=== PATIENT | male | born 1950 | race Caucasian/White ===

== ENCOUNTER 2020-02-12 12:54 | Emergency (ER) | payer SELFPAY ==
[2020-02-12 12:55] VITALS: BP 163/121; PULSE 72; RESP 16; TEMP 36.2; O2SAT 97; BMI 31.0
--- NOTE | 2020-02-12 13:31 | EKG12_ITS ---
Test Reason : Blood Pressure : / mmHG Vent. Rate : 069 BPM Atrial Rate : 069 BPM P-R Int : 188 ms QRS Dur : 090 ms QT Int : 410 ms P-R-T Axes : 067 041 027 degrees QTc Int : 439 ms Sinus rhythm with Premature atrial complexes Otherwise normal ECG Confirmed by ANAHI SAENZ, GILBERTO ([id number]), manager background QUENTIN ROSE ([id number]) on 02/19/2020 11:43:19 AM Referred By: LAILA Confirmed By:GILBERTO CHRISTIAN MD
--- NOTE | 2020-02-12 13:31 | RAD_ITS ---
STUDY: X-RAY CHEST REASON FOR EXAM: Male, 69 years old. SOB on exertion since , anterior left chest pain TECHNIQUE: Single AP portable view of the chest. COMPARISON: None. FINDINGS: EKG electrodes are seen. Hyperinflation. Scattered calcified granulomas. There is no demonstrated pleural abnormality. Normal size heart. Normal mediastinum and jefferson. Normal visualized pulmonary arteries. There is atherosclerotic calcification of the aortic arch with tortuosity. There are diffuse degenerative changes of the visualized thoracic spine. Normal visualized ribs, clavicles, and shoulders. There is no demonstrated abnormality of the visualized soft tissue structures of the upper abdomen. RAD/Chest 1 View (Portable) IMPRESSION: Hyperinflation. No acute abnormality is seen. Electronically Signed: Gopi Pearson, at 15:21 EDT , Service support ,
[2020-02-12 13:36] VITALS: BP 186/96; PULSE 66; RESP 19; O2SAT 94
[2020-02-12 13:37] VITALS: O2SAT 93
--- NOTE | 2020-02-12 13:37 | ED.RN ---
NO OLD EKGS
[2020-02-12 13:42] LABS: Absolute Neutrophil Count 4.8 X10^3/uL (2.0-7.7); Basophil# 0.08 X10^3/uL; Eosinophil# 0.67 X10^3/uL; Eosinophils% 8.3 % (0-5); Hematocrit 48.1 % (40-54); Lymphocyte % 22.2 % (19-41); Mean Corp Hgb Conc 33.3 g/dL (32-36); Mean Corpuscular Hgb 30.8 pg (27.0-32.0); Mean Corpuscular Volume 92.5 fL (80-94); Mean Platelet Vol. 10.1 fl (6.2-12.0); Monocyte# 0.76 X10^3/uL; Monocyte% 9.4 % (0-10); NRBC Flagged by Analyzer 0 % (0-5); Neutrophil # 4.77 X10^3/uL (2.7-7.7); Neutrophil % 58.9 % (47-70); Platelet Count 297 K/mm3 (150-450); RBC Distribution Width CV 12.2 % (11.6-14.6); White Blood Count 8.1 K/mm3 (4.4-11.0)
[2020-02-12 13:51] VITALS: PULSE 88; RESP 20
[2020-02-12] MEDS: Ipratropium/Albuterol Sulfate 3 ML AMPUL.NEB INHALATION (13:51)
[2020-02-12] MEDS: Albuterol 2.5 MG/3 ML VIAL.NEB. INHALATION ×3 (13:51)
[2020-02-12 14:03] LABS: BNP,B-Type NATRIURETIC PEPTIDE 5.9 pg/mL (0-100)
[2020-02-12 14:04] LABS: Anion Gap 7 (5-15); BUN 14 mg/dL (7-18); BUN/Creat Ratio 15.5 RATIO (10-20); Calcium,Total 9.3 mg/dL (8.5-10.1); Chloride 102 mmol/L (98-107); EST Glomerular Filtration Rate 89 mL/min (>60); Est Glom Filt Rate - Afr Amer 108 mL/min (>60); Estimated Creatinine Clearance 78.56 ml/min; Glucose 107 mg/dL (74-106); Sodium Level 138 mmol/L (136-145)
[2020-02-12 15:17] VITALS: BP 146/95; PULSE 68; RESP 23; O2SAT 91
--- NOTE | 2020-02-12 15:38 | ED.DCSUM_ITS ---
History of Present Illness Chief Complaint: Shortness of Breath Informant: Patient Narrative: Patient presenting for evaluation secondary to shortness of breath. Patient reports that he potentially has a history of some mild asthma or COPD he is on an inhaler. Patient tells me that he has been dealing with increasing shortness of breath since , but since today he reports that he is having shortness of breath even with light exertion. Patient states that it is associated with chest discomfort, and a cough that is productive of white sputum. Patient denies any fevers. He denies any nausea vomiting or diarrhea. No sick contacts. Review of systems otherwise negative. Past Medical History - Allergies and Home Meds Allergies/Adverse Reactions: Allergies No Known Allergies Allergy (Verified 02/12/20 12:55) Primary Care Physician: Care Physician,No Primary [Primary Care Provider] - Prior records reviewed: Yes Past Medical History: - - Asthma Smoking Status: Former smoker Alcohol: None Drugs: None Review of Systems All systems negative except as indicated General: Denies: Chills, Fever, Sweats Eyes: Denies: Visual changes - bilaterally, Diplopia ENT: Denies: Rhinorrhea, Sore throat Cardiovascular: Denies: Chest pain, Palpitations Respiratory: Reports: Dyspnea, Cough Gastrointestinal: Denies: Abdominal pain, Nausea, Vomiting, Diarrhea, Melena, Hematochezia Genitourinary: Denies: Dysuria, Hematuria, Frequency Musculoskeletal: Denies: Back pain, Extremity Pain Skin: Denies: Rash, Wounds Neurological: Denies: Headache, Weakness, Numbness Physical Exam Vital Signs/Narrative: Vital Signs Temp Pulse Resp BP Pulse Ox 02/12/20 15:17 68 23 H 146/95 H 91 02/12/20 13:51 88 20 H 02/12/20 13:36 66 19 H 186/96 H 94 02/12/20 12:55 97.2 F L 72 16 163/121 H 97 Inital Vital Signs reviewed: Yes General: Well nourished, Well developed, No Acute Distress Head: Normocephalic, Atraumatic Eyes: Perrl, EOMI ENT: Moist mucous membranes, No rhinorrhea Neck: Supple, Nontender Cardiovascular: Regular rate, Regular rhythm, No murmurs Respiratory: No distress, Chest nontender, Wheezing Abdomen: Soft, Nontender, Nondistended, Normal bowel sounds Back: Nontender, Normal Inspection Extremities: Nontender, No edema Skin: Normal color, No rash Neurological: Alert, Oriented x3, Cranial nerves II-XII grossly intact, Normal Strength, Normal Sensation Psychological: Normal affect, Normal Mood Diagnostic/Tx/Re-eval Chest X-Ray - ED: Read by ED Physician, Read by Radiologist, No Acute Disease Clinical Impression(s) from Imaging Studies Chest X-Ray 02/12/20 13:31 IMPRESSION: Hyperinflation. No acute abnormality is seen. Electronically Signed: Gopi Pearson, at 15:21 EDT , Service support , Laboratory Data 02/12/20 02/12/20 02/12/20 13:24 13:24 13:24 WBC 8.1 RBC 5.20 Hgb 16.0 Hct 48.1 MCV 92.5 MCH 30.8 MCHC 33.3 RDW Std Deviation 42.0 RDW Coeff of Diallo 12.2 Plt Count 297 MPV 10.1 Immature Gran % (Auto) 0.200 Neut % (Auto) 58.9 Lymph % (Auto) 22.2 [place] % (Auto) 9.4 Eos % (Auto) 8.3 H Baso % (Auto) 1.0 Absolute Neuts (auto) 4.8 Absolute Lymphs (auto) 1.80 Nucleated RBC % 0 Sodium 138 Potassium 4.0 Chloride 102 Carbon Dioxide 29.0 Anion Gap 7 BUN 14 Creatinine 0.90 Estim Creat Clear Calc 78.56 Est GFR (MDRD) Af Amer 108 Est GFR (MDRD) Non-Af 89 BUN/Creatinine Ratio 15.5 Glucose 107 H Calcium 9.3 Troponin I < 0.015 B-Natriuretic Peptide 5.9 - Medical Decision Making Patient presented for evaluation secondary shortness of breath. On physical exam the patient was noted to be very wheezy, he was given albuterol and DuoNeb treatments in the emergency department. Chest x-ray per radiology my personal review shows hyperinflation no evidence of acute pathology. CBC chemistry troponin EKG found to be unremarkable. BNP was obtained due to the patient's exertional component this was also found to be unremarkable. Patient had improvement on repeat evaluation, he had an ambulatory pulse ox without desaturation. I believe the patient's presentation likely is more consistent with a COPD exacerbation. He does have a change in his sputum will be treated with a course of prednisone and azithromycin. Patient will be given a PCP referral from the referral list. ED Disposition - Plan for ED Patient: Disposition: Home or Assisted Living Diagnosis: COPD exacerbation Instructions: ED COPD Flare Prescriptions: predniSONE tablet 60 mg PO DAILY #15 tab Prescription Printed Albuterol Inhaler [Ventolin Hfa] 1 - 2 puff INHALATION Q4H PRN PRN #1 inhaler PRN Reason: Wheezing Prescription Printed Azithromycin [Zithromax Z-Edward] 250 mg PO UD #1 box Prescription Printed Referrals: Janak Mendez MD [STAFF PHYSICIAN] -
[2020-02-12 15:57] VITALS: BP 124/77; PULSE 62; RESP 15; O2SAT 95
== END 2020-02-12 15:57 | disposition home or self-care (01) ==
LOC: ED 15:44
PROVIDERS: Emergency Provider Emergency Medicine
DX: J44.1 Chronic obstructive pulmonary disease with (acute) exacerbation (principal); Z87.891 Personal history of nicotine dependence
CPT/HCPCS: 71045; 80048; 83880; 84484; 85025; 87635; 93005; 94640; 99285; A4216; U0003

== ENCOUNTER → 2020-09-27 13:45 | Outpatient (CLI) | payer BC, SELFPAY ==
[2020-09-17 13:58] VITALS: BMI 31.0
--- NOTE | 2020-09-27 13:50 | CT_ITS ---
STUDY: CT ABDOMEN AND PELVIS WITH CONTRAST REASON FOR EXAM: Male, 69 years old. Inguinal hernia repair. Worsening pain and swelling. RADIATION DOSAGE (If Supplied By Facility): CTDIvol = ( 17.49 ) mGy, DLP = ( 1395.82 ) mGycm TECHNIQUE: Transaxial images were obtained from the dome of the diaphragm to the symphysis pubis with oral contrast. Oral and amp; IV Readi-CAT and amp; 100mL Isovue-300 was administered. Sagittal and coronal images were reconstructed. Individualized dose optimization techniques were used for this CT. COMPARISON: None. FINDINGS: The visualized lung bases are unremarkable. The visualized portions of the heart are within normal limits. There is decreased attenuation of the liver consistent with steatosis. There are small gallstones in the neck of the gallbladder lumen. Normal spleen. Normal pancreas. Normal bilateral adrenal glands. Normal right kidney. Normal left kidney. Normal visualized stomach. Normal small intestine. Normal colon. The appendix is visualized and appears normal. There is diffuse atherosclerotic calcification of the abdominal aorta, without a demonstrated aneurysm. Normal inferior vena cava. Normal retroperitoneum. Normal urinary bladder. There is a small umbilical hernia containing fat. Evidence of prior right inguinal hernia repair. Moderate sized left inguinal hernia containing nondilated portion of the sigmoid colon. The neck of the hernia measures 2.2 cm. Moderate sized right inguinal hernia containing fat. Hydrocele in the right scrotum. There are degenerative changes of the visualized lumbar spine. CT/Abdomen/Pelvis WITH Contrast IMPRESSION: Bilateral inguinal hernias worse on the left side as described. There is evidence of prior right inguinal hernia repair. Small gallstones are seen in the neck of the gallbladder lumen. Fatty infiltration of the liver. Electronically Signed: Gopi Pearson MD at 14:40 EDT , Service support ,
[2020-09-27 14:11] LABS: EGFR FINGERSTICK > 60.0000 mL/min (>60)
== END ==
PROVIDERS: PCP Family Medicine; Referring Provider Surgery; Visit Provider Surgery
DX: Z01.812 Encounter for preprocedural laboratory examination (principal); K40.20 Bilateral inguinal hernia, without obstruction or gangrene, not specified as recurrent; K42.9 Umbilical hernia without obstruction or gangrene
CPT/HCPCS: 74177; Q9967; A4216

== ENCOUNTER 2020-10-07 11:19 | Day surgery (SDC) | payer BC, SELFPAY ==
[2020-09-30 08:42] VITALS: BMI 31.0
[2020-10-04 13:39] LABS: Hemoglobin 14.5 g/dL (13.0-16.5); Mean Corpuscular Hgb 30.2 pg (27.0-32.0); Mean Corpuscular Volume 91.7 fL (80-94); Mean Platelet Vol. 10.5 fl (6.2-12.0); Platelet Count 266 K/mm3 (150-450); RBC Distribution Width CV 12.8 % (11.6-14.6); RBC Distribution Width SD 42.5 fl (35.1-43.9)
--- NOTE | 2020-10-04 13:40 | EKG12_ITS ---
Test Reason : PREOP Blood Pressure : / mmHG Vent. Rate : 073 BPM Atrial Rate : 073 BPM P-R Int : 160 ms QRS Dur : 088 ms QT Int : 376 ms P-R-T Axes : 019 046 034 degrees QTc Int : 414 ms Normal sinus rhythm Normal ECG Confirmed by PO SAENZ, OMI ([id number]), sports editor QUENTIN ROSE ([id number]) on 10/07/2020 1:43:15 PM Referred By: Maksim Bella Confirmed By:OMI FONTENOT MD
[2020-10-07] VITALS (7 sets, daily range): BP systolic 134–154; BP diastolic 83–111; PULSE 62–79; RESP 14–18; TEMP 36.2–37.1; O2SAT 92–98; BMI 31.6
--- NOTE | 2020-10-07 | HERN_PTH ---
PATIENT: LUZ MARINA DENNIS [place] [facility] [id number] AGE/SX: 69/M ROOM: RE10/07/[address]: Dr. Maksim Bella MD : 1950 BED: DIS: 10/07/2020 SPEC #: [id number] RECD: 10/07/20 15:14 STATUS: RAJENDRA TIFFANY #: [id number] ANTONIO: 10/07/20 00:[address]: Maksim Bella DEPT: SURGICAL PATHOLOGY RECD BY: Winston Lopez ENTERED: 10/08/20 08:08 SP TYPE: Hernia OTHR DR: Dr. Janak Mendez MD Tissues: HERNIA Procedures: Surgery Specimen Level II HEADER OPERATION: Inguinal hernia with mesh, open umbilical hernia repair PRE-OP DIAGNOSIS: Umbilical hernia; bilateral inguinal hernia TISSUE SUBMITTED: Left inguinal hernia sac MICROSCOPIC DIAGNOSIS Left inguinal hernia sac: Mesothelial-lined fibroadipose and fibroconnective tissue, consistent with hernia sac. SJ:jennie 10/09/2020 MICROSCOPIC DESCRIPTION Slides are reviewed. GROSS DESCRIPTION Received in fixative is one container labeled with the patient's name and designated inguinal hernia sac. The specimen consists of an irregular piece of lomeli soft tissue measuring 9 x 1 x 0.3 cm. No mass lesion is identified. Packaging Sales sections are submitted in one cassette. / TANIA:jennie 10/08/20 TC:5 CPT: 97518
[2020-10-07] MEDS: Lactated Ringers 1,000 ML 100 ML IV ×2 (12:01→14:56)
--- NOTE | 2020-10-07 12:52 | HP.PCM_ITS ---
History and Physical Date of Admission: 10/07/20 Intake Vital Signs 09/30/20 08:42 BMI 31.0 Intake Visit Reasons: f/u CT and hernias Chief Complaint: bilateral inguinal and umbilical hernias/ change in bowel habits Allergies No Known Allergies Allergy (Verified 09/30/20 08:41) Medications albuterol sulfate 1 - 2 puff INHALATION Q4H PRN PRN #1 inhaler 02/12/20 [Rx Confirmed 09/30/20] fluticasone 250 mcg-salmeterol 50 mcg/dose blistr powdr for inhalation INHALATION 09/17/20 [History Confirmed 09/30/20] rosuvastatin 5 mg tablet 5 mg PO DAILY tab 09/17/20 [History Confirmed 09/30/20] PFSH Medical History Back pain Bilateral inguinal hernia (BIH) COPD (chronic obstructive pulmonary disease) Shortness of breath on exertion Umbilical hernia Surgical History History of colonoscopy (~2017) History of hernia repair (~2012) Family History Daughter Seasonal allergies Social History Smoking Status: Former smoker HPI HPI HPI: LUZ MARINA DENNIS, is a 69 M who presents to the office today for follow-up after CT scan. The patient has been having bulging in both groins and the left side is unable to be reduced. The patient is also noted that he has to push in his right inguinal hernia to urinate. I sent the patient for CT scan which revealed umbilical hernia as well as bilateral inguinal hernias containing bladder on the right and colon on the left. ROS General General: Yes fatigue; No weight change, appetite, colon cancer, breast cancer or weakness HEENT HEENT: No difficulty swallowing, eye injury, eye surgery, swollen glands or hoarseness Endo Endocrine: No thyroid disease, diabetes mellitus, thyroid cancer, Hair loss, heat intolerance or cold intolerance Musc Musculoskeletal: Yes back problems; No arthritis, rheumatoid arthritis, gout or joint pain Cardio Cardiovascular: No murmur, pacemaker, heart disease, atrial fibrillation, high blood pressure, heart attack, heart stent, palpitations, shortness of breat with exertion or chest pain Psych Psychiatric: No depression, anxiety or hearing voices Resp Respiratory: Yes shortness of breath, No sleep apnea, No cough, Yes COPD, No asthma, No emphysema and No wheezing Gastro Gastrointestinal: Yes abdominal pain, No nausea or vomiting, Yes diarrhea, No constipation, No blood in stool, No acid reflux, No hemorrhoids, No ulcers, No gallbladder problem and No black,tarry stools Ej Hematologic: No blood thinners, No blood disorders, No bleeding, No anemia and No blood clots Neuro Neurologic: No weakness Exam Const General: cooperative Orientation: alert and oriented x3 HENMT Head: normal to inspection Neck Neck: normal visual inspection and full ROM Chest Chest palpation & inspection: normal inspection of the chest Resp Effort & Inspection: normal respiratory effort Auscultation: clear to auscultation bilaterally Cardio Rate: regular rate Rhythm: regular rhythm GI Inspection: non-distended Palpation: soft, hernia indirect inguinal bilaterally and umbilical and nontender Skin General: no rashes or lesions noted Neuro General: patient alert and patient oriented x3 Extrem General: full ROM Psych Appearance: grossly normal Mental Status: mental status grossly normal Assessment and Plan Assessment and Plan (1) Umbilical hernia: Status: Acute Qualifiers: Obstruction and gangrene presence: without obstruction or gangrene Qualified Code(s): K42.9 - Umbilical hernia without obstruction or gangrene (2) Bilateral inguinal hernia (BIH): Status: Acute Qualifiers: Obstruction and gangrene presence: without obstruction or gangrene Recurrence: recurrent Qualified Code(s): K40.21 - Bilateral inguinal hernia, without obstruction or gangrene, recurrent Plan - Dr. Maksim Bella MD: The patient has bilateral inguinal hernia. Patient also has umbilical hernia. Given the fact that the left side is incarcerated containing colon I recommend that this be repaired first. The patient has a history of right inguinal hernia repair so the right side is recurrent. The CT scan shows bilateral inguinal hernia containing colon left and bladder on the right. There is a significant amount of bladder in the inguinal region and scrotum on the CT scan. The patient will require bilateral inguinal hernia repair but I would recommend this in an open fashion due to the history of laparoscopic repair on the right. I would not recommend a bilateral open inguinal hernia approach due to good recovery time. I recommend that the patient have an umbilical hernia repair as well as a open left inguinal hernia repair first. Once he is recovered from this I will plan for an open right inguinal recurrent hernia repair. I discussed hernia repair as well as umbilical repair in detail the patient. I discussed the risks including not limited to bleeding, infection, injury to underlying organs such as the colon. Chronic groin pain or injury to spermatic cord. The patient understands the risks and is when to proceed with open left inguinal hernia repair and umbilical hernia repair with mesh. Maksim Bella MD Pager: [facility] [address] [place] [address], [address] [place] [address] Office: I have re-examined the patient. There are no clinical changes since date of exam.
[2020-10-07] MEDS: Cefazolin 2 GM in 0.9% Normal Saline 100 ML IV (13:09)
[2020-10-07] MEDS: Bupiv/Epi 0.25% 30 ML Vial (14:27)
--- NOTE | 2020-10-07 14:47 | PCM.OPRPT ---
Problems Associated Problem List Diagnoses (1) Left inguinal hernia: (2) Umbilical hernia: Report of Operation Date of Procedure: 10/07/20 Pre-Operative Diagnosis: Left inguinal hernia Umbilical hernia Post-Operative Diagnosis: Same Surgery/Procedure Performed:: Left inguinal hernia repair with mesh Umbilical hernia repair with mesh Specimen's removed: Left inguinal hernia sac Description of Procedure: The patient was brought back to the operating room and general anesthesia was induced. The abdomen was prepped and draped in usual sterile fashion. The left inguinal region was reduced of its hernia contents. An incision was marked in the left lower quadrant and injected with local anesthetic. An incision was made a scalpel and it was deepened to the external aponeurosis. The external aponeurosis was incised with a scalpel and then hemostats were used to raise both ends and scissors were used to open the external aponeurosis until the external ring was opened. This was also extended superior laterally. The edges were raised and dissection was carried out and a self-retaining retractor was used. Next the umbilical cord was circumscribed with a Mariza drain and elevated. The hernia sac was identified and dissected free of its lateral adhesions. The hernia sac was then elevated and opened using scissors. The contents were reduced to fully and an 0 silk suture was used to ligate the hernia sac. The remaining hernia sac was removed and the stump of the hernia sac was reduced into the abdomen. Next keyhole mesh was tacked to the pubic tubercle using 0 PDS suture. The mesh was then tacked to the shelving portion of the inguinal ligament using interrupted 0 PDS sutures. The mesh was then sutured to the conjoined tendon using interrupted 0 PDS sutures. The tails were placed around the inguinal cord and sutured together using PDS suture. They were tucked under the external aponeurosis. The inguinal canal was irrigated and suctioned dry. The external aponeurosis was then reapproximated using a running 3-0 Vicryl suture. Nina's fascia was then closed using interrupted 3-0 Vicryl suture. The skin was closed using a running 4-0 Monocryl. Glue was applied. Next the umbilical hernia was addressed. A curvilinear incision was marked superior to the umbilicus and then incised using a scalpel. The umbilical stalk was taken off of the hernia sac and retracted. The hernia was dissected free circumferentially until Stephanie's were used to raise the edges. The preperitoneal contents were dissected free leaving a pocket in the preperitoneal space and reducing the hernia sac. Next a small Ventralex ST mesh was placed into the preperitoneal space and sutured to the anterior fascia using 0 PDS suture. The mesh was then reapproximated using interrupted 0 PDS sutures. The subcutaneous tissue was irrigated and suctioned dry. The umbilical stalk was sutured to the fascia using 3-0 Vicryl suture. The skin was closed with a running 4-0 Monocryl suture. Steri-Strips were applied as well as bandages. Patient was then taken to PACU in stable condition and tolerated the procedure well. Grafts/Implants Used: Bard keyhole mesh in the left inguinal region, small Ventralex ST umbilical Admit VTE Documentation VTE Mechan Device Prophylaxis: SCD's
--- NOTE | 2020-10-07 14:53 | EX.PCM.DISCH ---
Discharge Instructions Procedure Hernia Diet Discharge Diet: Light diet - advance as tolerated Activity Discharge Activity: May Not Drive (for 2-3 days or while taking narcotic pain meds.) and May Shower (with the bandage in place 1-2 days after surgery.) Lifting Restrictions: 20 pounds for 6 weeks. Additional Activity Instructions:: Climbing stairs is fine, walking is encouraged. Sitting in bed may be uncomfortable. Sitting up using your lateral muscles (sitting up sideways) is usually more comfortable. Do not drive, work heavy equipment of sign legal documents for 24 hours. If your hernia repair was an ingunial repair, you may have scrotal swelling, an ice pack and/or athletic support can provide more comfort. Pain medications may cause nausea, you should typically eat light foods as you take your pain medications. Pain medications may also cause constipation. If you have difficulty with this, discuss with your doctor. Dressing / Incision Call your doctor if your incision/area has: Continuous Slow Oozing, Sudden Increased Bleeding, Increased Pain/ Swelling, Increased Redness and Foul Smelling Discharge Call your doctor if you observe: Fever of 101 or Higher Suture Line Care: Avoid Pulling/Pushing and Avoid Pinching/Bending Remove Dressing in: 3 days Cleanse incision/area with: Soap & Water Follow Up Care Please Follow Up With: Maksim Bella MD When: Please call to schedule 2 week follow up appointment. [phone] Test Results: Test results from this visit will be discussed in further detail at your follow-up appointment, if applicable. Discharge Plan Admission Attending Provider: Maksim Bella Primary Care Provider: Janak Mednez Discharge Orders/Prescriptions Prescriptions: New oxycodone-acetaminophen [Percocet] 5-325 mg tablet 1 - 2 tab PO Q6H PRN (Reason: pain) 5 Days Qty: 30 RF: 0 No Action rosuvastatin 5 mg tablet 5 mg PO DAILY RF: 0 fluticasone propion-salmeterol 250-50 mcg/dose blister with device 1 inh inhalation DAILY RF: 0 albuterol sulfate 1 INHALER inhaler 1 - 2 puff INHALATION Q4H PRN PRN (Reason: Wheezing) Qty: 1 RF: 0 fexofenadine [Katie Allergy] 180 mg Tablet 180 mg PO DAILY RF: 0 bismuth subsalicylate [Pepto-Bismol] 262 mg Tablet,Chewable 1 tab PO DAILY RF: 0 Referrals / Follow Up: Janak Mendez MD [Primary Care Provider] - Disposition Disposition (needs filled in before D/C Order can be placed): Home, self care
[2020-10-07] MEDS: oxyCODONE 5 MG Tablet PO (16:13)
[2020-10-07] MEDS: Acetaminophen 325 MG Tablet PO (16:13)
== END 2020-10-07 16:50 | disposition home or self-care (01) ==
LOC: SDC 11:20 → AC 11:20
PROVIDERS: Anesthesiology; PCP Family Medicine; Referring Provider Surgery; Visit Provider Surgery
PROC: (CPT 49505; principal; 2020-10-07 13:00)
DX: K42.9 Umbilical hernia without obstruction or gangrene (principal); R19.4 Change in bowel habit; K40.21 Bilateral inguinal hernia, without obstruction or gangrene, recurrent; J44.9 Chronic obstructive pulmonary disease, unspecified; Z87.891 Personal history of nicotine dependence
CPT/HCPCS: 49505; 49585; 36415; 85027; 87426; 88302; 93005; C9803; J7120; C1781; J2405

== ENCOUNTER 2021-03-23 01:32 | Observation (INO) | payer BC, MEDICARE, SELFPAY ==
[2021-03-23] VITALS (14 sets, daily range): BP systolic 119–181; BP diastolic 66–107; PULSE 65–89; RESP 14–18; TEMP 36.5–37.2; O2SAT 93–98; BMI 31.2; BMI 30.4
--- NOTE | 2021-03-23 02:08 | CT_ITS ---
ACR Level 3 findings have been noted. An addendum which confirms receipt of the report will follow. Study: CT angiogram of the chest, abdomen, and pelvis with IV contrast. COMPARISON: None. HISTORY: Abdominal pain, rule out aortic dissection. TECHNIQUE: Serial axial images of the chest , abdomen, and pelvis were obtained following intravenous injection of 100 mL ISOVUE-370. Coronal and sagittal MIP images were obtained and reviewed. Individualized dose optimization techniques were used for this CT. FINDINGS: CHEST: No thoracic aortic aneurysm or dissection. Atherosclerosis of the thoracic aorta and coronary arteries noted. No adenopathy. No pericardial or pleural effusion. No pneumothorax. No poorly consolidation, mass, or suspicious nodule. Multilevel thoracic spondylosis. No acute osseous abnormality in the thoracic cage. Abdomen and pelvis: No abdominal aortic aneurysm or dissection. Atherosclerosis of the abdominal aorta noted.. Diffuse hepatic steatosis with focal fat sparing adjacent to the gallbladder fossa. Stones in the gallbladder. Gallbladder wall thickening with minimal pericholecystic fat stranding. Findings are suggestive of acute cholecystitis. Unremarkable spleen, pancreas, adrenals, and left kidney. A 0.4 cm hypodensity arising from the lateral cortex of the mid part of the right kidney, probably a cyst but too small to fully characterize.. No CT evidence of acute appendicitis. Bowel loops nonobstructed. No free air or free fluid. No adenopathy. Sections through the pelvis demonstrate a mildly enlarged prostate. Right inguinal hernia is noted containing fat and anterolateral wall of the urinary bladder. Small fat-containing left inguinal hernia is seen. There is multilevel lumbar spondylosis. CT/CTA Chst, Abd, Pel W and/or WO IMPRESSION: No thoracoabdominal aortic aneurysm or dissection. No acute finding the chest. Cholelithiasis with findings highly suggestive of acute cholecystitis. HIDA scan is recommended to confirm. Electronically Signed: Yuan Ren MD at 3:49 EST Tel , Service support ,
[2021-03-23] MEDS: Ondansetron 4 MG/2 ML Vial IV ×2 (02:17→07:03)
[2021-03-23] MEDS: 0.9% Normal Saline 1,000 ML 999 ML IV (02:17)
[2021-03-23] MEDS: Morphine 4 MG/ML Syringe IV (02:17)
[2021-03-23 02:31] LABS: Bacteria 0 SEEN /hpf (None Seen); Color, Urine Yellow (Yellow); Glucose, Dipstick 50 mg/dl (Normal); Ketone-Dipstick 5 mg/dl (Negative); Leukocyte Esterase-Dipstick Negative /ul (Negative); Mucous, Urine 0 SEEN /hpf (<or=2+); Nitrite-Dipstick Negative (Negative); Occult Blood-Urine 10 /ul (Negative); Protein-Dipstick 30 mg/dl (Negative); Red Blood Cells-Urine 0 SEEN /hpf (0-5); Specific Gravity, Urine 1.025 (1.002-1.030); Squamous Epithelial Cells - UA 0 SEEN /hpf (0-5); Urine Bilirubin Dipstick Negative (Negative); Urine Clarity Clear (Clear); Urine Urobilinogen Normal (Normal); White Blood Cells 0 SEEN /hpf (0-5)
[2021-03-23 02:32] LABS: Absolute Neutrophil Count 10.3 X10^3/uL (2.0-7.7); Basophil# 0.08 X10^3/uL; Basophil% 0.7 % (0-1); Eosinophil# 0.16 X10^3/uL; Eosinophils% 1.3 % (0-5); Hematocrit 46.1 % (40-54); Lymphocyte % 8.2 % (19-41); Mean Corp Hgb Conc 34.7 g/dL (32-36); Mean Corpuscular Hgb 31.5 pg (27.0-32.0); Mean Corpuscular Volume 90.7 fL (80-94); Mean Platelet Vol. 10.3 fl (6.2-12.0); Monocyte# 0.59 X10^3/uL; Monocyte% 4.8 % (0-10); NRBC Flagged by Analyzer 0 % (0-5); Neutrophil # 10.31 X10^3/uL (2.7-7.7); Neutrophil % 84.6 % (47-70); Platelet Count 283 K/mm3 (150-450); RBC Distribution Width SD 39.8 fl (35.1-43.9); Red Blood Count 5.08 M/mm3 (4.6-6.2); White Blood Count 12.2 K/mm3 (4.4-11.0)
[2021-03-23 02:43] LABS: International Normalized Ratio 1.1; Prothrombin Time (Protime)PT. 13.2 SECONDS (11.7-14.9)
[2021-03-23 02:44] LABS: Partial Thromboplast Time 31.2 Seconds (24.1-36.2)
[2021-03-23 02:50] LABS: AST(SGOT) 54 U/L (15-37); Alanine Aminotransfer ALT/SGPT 43 U/L (16-61); Albumin, Serum 3.8 g/dL (3.2-5.0); Alkaline Phosphatase 77 U/L (45-117); Anion Gap 7 (5-15); BUN 18 mg/dL (7-18); BUN/Creat Ratio 19.3 RATIO (10-20); Bilirubin, Direct 0.14 mg/dL (0.00-0.30); Calcium,Total 9.6 mg/dL (8.5-10.1); Chloride 105 mmol/L (98-107); Creatinine, Serum 0.93 mg/dL (0.70-1.30); EST Glomerular Filtration Rate 86 mL/min (>60); Est Glom Filt Rate - Afr Amer 103 mL/min (>60); Globulin 4.2 g/dL (2.2-4.2); Glucose 182 mg/dL (74-106); Lipase 109 U/L (73-393); Potassium 4.5 mmol/L (3.5-5.1); Sodium Level 137 mmol/L (136-145)
[2021-03-23 02:58] LABS: Lactic Acid 1.1 mmol/L (0.4-1.9)
[2021-03-23] MEDS: fentaNYL 100 MCG/2 ML Ampul 50 MCG IV (03:14)
--- NOTE | 2021-03-23 03:21 | EDS_ITS ---
HPI History of Present Illness Chief Complaint: Constipation Narrative Narrative: Patient is a 70-year-old male from home who presents with complaint of abdominal pain. He states that he has had difficulty with bowel movements for the past 5 to 7 days and only been passing small stools. He states he has noticed some increasing pain to his upper mid abdomen without any injury. He denies any chest pain fevers chills nausea or vomiting. He states he has been trying his home medications as well as edtj-qxq-ydjqfzj medications without any symptom improvement and secondary to this comes in for evaluation. Patient does state that he feels like the upper abdominal pain does shoot into his back. [facility] Medical History Alcohol use Back pain Bilateral inguinal hernia (BIH) COPD (chronic obstructive pulmonary disease) Depression Former smoker High cholesterol History of stress test Injury of head and neck Shortness of breath on exertion Umbilical hernia Wears glasses Home Medications albuterol sulfate 1 - 2 puff INHALATION Q4H PRN PRN #1 inhaler 02/12/20 [Rx Last Taken Unknown] fluticasone 250 mcg-salmeterol 50 mcg/dose blistr powdr for inhalation 1 inh INHALATION DAILY 09/17/20 [History Last Taken Unknown] rosuvastatin 5 mg tablet 5 mg PO DAILY tab 09/17/20 [History Last Taken Unknown] bismuth subsalicylate [Pepto-Bismol] 1 tab PO DAILY 10/04/20 [History Last Taken Unknown] fexofenadine [Katie Allergy] 180 mg PO DAILY 10/04/20 [History Last Taken Unknown] Allergy/AdvReac Type Severity Reaction Status Date / Time No Known Allergies Allergy Verified 03/23/21 01:38 Family History Daughter Seasonal allergies Surgical History History of colonoscopy (~2017) History of hernia repair (~2012) Hx of left inguinal hernia repair Hx of umbilical hernia repair Social History Smoking Status: Former smoker ROS ROS ED Constitutional Constitutional ED: Denies chills or fever(s) ENT ENT ED: Denies sore throat Cardiovascular Cardiovascular: Denies chest pain Respiratory/Chest Respiratory/Chest: Denies cough or dyspnea Gastrointestinal Gastrointestinal: Reports abdominal pain and constipation; Denies diarrhea, nausea or vomiting Genitourinary Genitourinary ED: Denies dysuria Musculoskeletal Musculoskeletal: Reports back pain; Denies myalgias Integumentary Denies rash Neurologic Neurologic: Denies headache(s) EXAM Physical Exam Const Vital Signs: 03/23/21 01:34 03/23/21 03:19 03/23/21 05:52 Temperature 98.1 F Temperature Source Oral Pulse Rate 77 89 67 Respiratory Rate 16 18 18 Blood Pressure 169/107 H 181/100 H 158/76 H Blood Pressure Mean 127 127 103 Pulse Ox 97 95 98 Oxygen Delivery Method Room Air Room Air 03/23/21 07:05 Temperature Temperature Source Pulse Rate 66 Respiratory Rate 18 Blood Pressure Blood Pressure Mean Pulse Ox 97 Oxygen Delivery Method Room Air Positive well nourished, well developed and obese General Appearance ED: well developed Nutritional Appearance: obese HEENT Reports dry mucous membranes Mouth ED: Yes dry mucous membranes Mouth: dry mucous membranes Eyes PERRL and EOMs intact bilaterally Neck supple Resp normal respiratory effort Resp Narrative: Breath sounds are diminished throughout with diffuse expiratory wheeze consistent with history of COPD but no signs of respiratory distress Cardio regular rate and regular rhythm Rate: other Other Details: Radial pulses are plus 2 out of 4 bilaterally are equal and symmetric GI GI Narrative: Abdomen is obese soft and nondistended with hyperactive bowel sounds. There is pain with palpation in the midepigastric region with mild voluntary guarding at the site. No fluid wave. No rigidity no pulsatile mass Extremity normal to inspection Neuro oriented x3 and CN's II-XII intact bilaterally Sensorium / Orientation: alert Motor Exam: strength 5/5 throughout Psych Mood & Affect: depressed Skin no rashes or lesions noted MDM MDM MDM Narrative Medical decision making narrative: Patient presented to the ER afebrile but was hypertensive. He talked about constipation but he reported his pain was in the midepigastric region and states it was radiating through to his back. With his abdominal pain and hypertension and the fact that he stated it radiated straight through his back there was concern he was having a dissection so I elected to perform a CTA of his chest abdomen and pelvis. CT revealed no acute dissection but did show gallstones with mild pericholecystic fluid concerning for acute cholecystitis. Secondary to this patient was given Zosyn. The case was discussed with Dr. Blood/general surgeon. At this time he recommends with the patient's chronic medical conditions he be admitted to medicine service with himself on his consult. Therefore I talked to medicine and medicine does not want to admit the patient as his official diagnosis is surgical. I then discussed the case with the surgeon once again who states that he still feels the patient should be admitted to medicine service. Therefore this time the case will be escalated to the medical wind field manager. If at that time it is necessary for transfer then that will be pursued for the patient's further care. Otherwise he will be admitted to the hospital for continued treatment of his abdominal pain secondary to acute cholecystitis Lab Data Attestation: I reviewed the patient's lab results. Labs: Laboratory Results - last 24 hr 03/23/21 03/23/21 03/23/21 02:20 02:20 02:20 WBC 12.2 H RBC 5.08 Hgb 16.0 Hct 46.1 MCV 90.7 MCH 31.5 MCHC 34.7 RDW Std Deviation 39.8 RDW Coeff of Diallo 12.0 Plt Count 283 MPV 10.3 Immature Gran % (Auto) 0.400 Neut % (Auto) 84.6 H Lymph % (Auto) 8.2 L George % (Auto) 4.8 Eos % (Auto) 1.3 Baso % (Auto) 0.7 Absolute Neuts (auto) 10.3 H Absolute Lymphs (auto) 1.00 Nucleated RBC % 0 PT 13.2 INR 1.1 APTT 31.2 Sodium 137 Potassium 4.5 Chloride 105 Carbon Dioxide 25.0 Anion Gap 7 BUN 18 Creatinine 0.93 Estim Creat Clear Calc 77.40 Est GFR (MDRD) Af Amer 103 Est GFR (MDRD) Non-Af 86 BUN/Creatinine Ratio 19.3 Glucose 182 H Lactic Acid Calcium 9.6 Total Bilirubin 0.80 Direct Bilirubin 0.14 AST 54 H ALT 43 Alkaline Phosphatase 77 Total Protein 8.0 Albumin 3.8 Globulin 4.2 Lipase 109 Urine Color Urine Clarity Urine pH Ur Specific [place] Urine Protein Urine Glucose (UA) Urine Ketones Urine Occult Blood Urine Nitrite Urine Bilirubin Urine Urobilinogen Ur Leukocyte Esterase Urine RBC Urine WBC Ur Squamous Epith Cells Urine Bacteria Urine Mucus 03/23/21 03/23/21 02:20 02:20 WBC RBC Hgb Hct MCV MCH MCHC RDW Std Deviation RDW Coeff of Diallo Plt Count MPV Immature Gran % (Auto) Neut % (Auto) Lymph % (Auto) George % (Auto) Eos % (Auto) Baso % (Auto) Absolute Neuts (auto) Absolute Lymphs (auto) Nucleated RBC % PT INR APTT Sodium Potassium Chloride Carbon Dioxide Anion Gap BUN Creatinine Estim Creat Clear Calc Est GFR (MDRD) Af Amer Est GFR (MDRD) Non-Af BUN/Creatinine Ratio Glucose Lactic Acid 1.1 Calcium Total Bilirubin Direct Bilirubin AST ALT Alkaline Phosphatase Total Protein Albumin Globulin Lipase Urine Color Yellow Urine Clarity Clear Urine pH 5.0 Ur Specific [place] 1.025 Urine Protein 30 H Urine Glucose (UA) 50 H Urine Ketones 5 H Urine Occult Blood 10 H Urine Nitrite Negative Urine Bilirubin Negative Urine Urobilinogen Normal Ur Leukocyte Esterase Negative Urine RBC 0 SEEN Urine WBC 0 SEEN Ur Squamous Epith Cells 0 SEEN Urine Bacteria 0 SEEN Urine Mucus 0 SEEN Radiography Diagnostic Testing: Clinical Impression(s) from Imaging Studies Chest/Abdomen/Pelvis CTA 03/23/21 02:08 IMPRESSION: No thoracoabdominal aortic aneurysm or dissection. No acute finding the chest. Cholelithiasis with findings highly suggestive of acute cholecystitis. HIDA scan is recommended to confirm. Electronically Signed: Yuan Ren MD at 3:49 EST Tel , Service support , ADDENDUM: 03/23/21 0359 IMPRESSION: No thoracoabdominal aortic aneurysm or dissection. No acute finding the chest. Cholelithiasis with findings highly suggestive of acute cholecystitis. HIDA scan is recommended to confirm. N.B. : Mikey Vaughn MD, confirmed on 03/23/2021 03:52:39 (ET) that the healthcare facility has received the radiology report. Electronically Signed: Yuan Ren MD at 3:49 EST Tel , Service support , Discharge Plan Triage Chief Complaint: Constipation ED Provider: Mikey Vaughn Dx/Rx/DC Orders Clinical Impression: Acute calculous cholecystitis Prescriptions: No Action rosuvastatin 5 mg tablet 5 mg PO DAILY RF: 0 fluticasone propion-salmeterol 250-50 mcg/dose blister with device 1 inh inhalation DAILY RF: 0 albuterol sulfate 1 INHALER inhaler 1 - 2 puff INHALATION Q4H PRN PRN (Reason: Wheezing) Qty: 1 RF: 0 fexofenadine [Katie Allergy] 180 mg Tablet 180 mg PO DAILY RF: 0 bismuth subsalicylate [Pepto-Bismol] 262 mg Tablet,Chewable 1 tab PO DAILY RF: 0 Primary Care Provider: Elba Leigh NP Referrals: Elba Leigh NP, [facility] [Primary Care Provider] -
--- NOTE | 2021-03-23 04:00 | ED.RN ---
DR. GIRALDO INFORMS THAT DR KENT REFUSES TO ADMIT PT. PT WILL WAIT IN ED UNTIL DAYSHIFT HOSPITALIST ARRIVES TO ADMIT.
[2021-03-23] MEDS: HYDROmorphone 1 MG/ML Syringe IV (04:09)
--- NOTE | 2021-03-23 08:23 | EX.PCM.CON.S ---
Assessment & Plan Assessment/Plan (1) Acute calculous cholecystitis: PLAN: We will admit the patient. Since he is a patient of Dr. Bella will see if he is able to remove his gallbladder sometime tomorrow. HPI Consult Data Date of Consult: 03/23/21 HPI Narrative HPI Narrative: LUZ MARINA DENNIS, is a 70 M who presents with complaint of abdominal pain. He states that he has had difficulty with bowel movements for the past 5 to 7 days and only been passing small stools. He states he has noticed some increasing pain to his upper mid abdomen without any injury. He denies any chest pain fevers chills nausea or vomiting. He states he has been trying his home medications as well as nodf-qaz-mnxzypu medications without any symptom improvement and secondary to this comes in for evaluation. Patient does state that he feels like the upper abdominal pain does shoot into his back. Chest abdomen pelvis CTA: Abdomen and pelvis: No abdominal aortic aneurysm or dissection. Atherosclerosis of the abdominal aorta noted.. Diffuse hepatic steatosis with focal fat sparing adjacent to the gallbladder fossa. Stones in the gallbladder. Gallbladder wall thickening with minimal pericholecystic fat stranding. Findings are suggestive of acute cholecystitis. Unremarkable spleen, pancreas, adrenals, and left kidney. A 0.4 cm hypodensity arising from the lateral cortex of the mid part of the right kidney, probably a cyst but too small to fully characterize.. No CT evidence of acute appendicitis. Bowel loops nonobstructed. No free air or free fluid. No adenopathy. Sections through the pelvis demonstrate a mildly enlarged prostate. Right inguinal hernia is noted containing fat and anterolateral wall of the urinary bladder. Small fat-containing left inguinal hernia is seen. There is multilevel lumbar spondylosis. CT/CTA Chst, Abd, Pel W and/or WO IMPRESSION: No thoracoabdominal aortic aneurysm or dissection. No acute finding the chest. Cholelithiasis with findings highly suggestive of acute cholecystitis. HIDA scan is recommended to confirm. [facility] Medical History Alcohol use Back pain Bilateral inguinal hernia (BIH) COPD (chronic obstructive pulmonary disease) Depression Former smoker High cholesterol History of stress test Injury of head and neck Shortness of breath on exertion Umbilical hernia Wears glasses Home Medications albuterol sulfate 1 - 2 puff INHALATION Q4H PRN PRN #1 inhaler 02/12/20 [Rx Last Taken Unknown] fluticasone 250 mcg-salmeterol 50 mcg/dose blistr powdr for inhalation 1 inh INHALATION DAILY 09/17/20 [History Last Taken Unknown] rosuvastatin 5 mg tablet 5 mg PO DAILY tab 09/17/20 [History Last Taken Unknown] bismuth subsalicylate [Pepto-Bismol] 1 tab PO DAILY 10/04/20 [History Last Taken Unknown] fexofenadine [Katie Allergy] 180 mg PO DAILY 10/04/20 [History Last Taken Unknown] Allergy/AdvReac Type Severity Reaction Status Date / Time No Known Allergies Allergy Verified 03/23/21 01:38 Family History Daughter Seasonal allergies Surgical History History of colonoscopy (~2017) History of hernia repair (~2012) Hx of left inguinal hernia repair Hx of umbilical hernia repair Social History Smoking Status: Former smoker ROS Cardiovascular Cardiovascular: Denies chest pain or chest pain at rest Respiratory/Chest Respiratory/Chest: Denies cough, dyspnea or shortness of breath at rest Gastrointestinal Gastrointestinal: Reports abdominal pain and constipation; Denies diarrhea, hematemesis or rectal bleeding Genitourinary Genitourinary: Reports difficulty urinating; Denies dysuria Physical Exam Const alert, oriented x3 and no apparent distress General Appearance: cooperative HEENT normocephalic and head/scalp atraumatic Eyes PERRL and EOMs intact bilaterally Neck full ROM Resp normal respiratory effort Cardio Rate: regular rate Rhythm: regular rhythm GI soft to palpation GI Narrative: Patient has minimal pain in the right upper quadrant. No rebound guarding or peritoneal signs are identified Auscultation: normoactive bowel sounds Palpation: Negative for guarding Lab / Micro Data Result Diagrams: 03/23/21 02:20 03/23/21 02:20 Labs: Laboratory Results - last 24 hr 03/23/21 02:20: WBC 12.2 H, RBC 5.08, Hgb 16.0, Hct 46.1, MCV 90.7, MCH 31.5, MCHC 34.7, RDW Std Deviation 39.8, RDW Coeff of Diallo 12.0, Plt Count 283, MPV 10.3, Immature Gran % (Auto) 0.400, Neut % (Auto) 84.6 H, Lymph % (Auto) 8.2 L, Wilkin % (Auto) 4.8, Eos % (Auto) 1.3, Baso % (Auto) 0.7, Absolute Neuts (auto) 10.3 H, Absolute Lymphs (auto) 1.00, Nucleated RBC % 0 03/23/21 02:20: PT 13.2, INR 1.1, APTT 31.2 03/23/21 02:20: Sodium 137, Potassium 4.5, Chloride 105, Carbon Dioxide 25.0, Anion Gap 7, BUN 18, Creatinine 0.93, Estim Creat Clear Calc 77.40, Est GFR (MDRD) Af Amer 103, Est GFR (MDRD) Non-Af 86, BUN/Creatinine Ratio 19.3, Glucose 182 H, Calcium 9.6, Total Bilirubin 0.80, Direct Bilirubin 0.14, AST 54 H, ALT 43, Alkaline Phosphatase 77, Total Protein 8.0, Albumin 3.8, Globulin 4.2, Lipase 109 03/23/21 02:20: Lactic Acid 1.1 03/23/21 02:20: Urine Color Yellow, Urine Clarity Clear, Urine pH 5.0, Ur Specific [place] 1.025, Urine Protein 30 H, Urine Glucose (UA) 50 H, Urine Ketones 5 H, Urine Occult Blood 10 H, Urine Nitrite Negative, Urine Bilirubin Negative, Urine Urobilinogen Normal, Ur Leukocyte Esterase Negative, Urine RBC 0 SEEN, Urine WBC 0 SEEN, Ur Squamous Epith Cells 0 SEEN, Urine Bacteria 0 SEEN, Urine Mucus 0 SEEN Micro: Microbiology 03/23/21 04:20 Nasal Secretion SARS-CoV-2 Antigen (Rapid) - Final Radiology Impression Chest/Abdomen/Pelvis CTA 03/23/21 02:08 IMPRESSION: No thoracoabdominal aortic aneurysm or dissection. No acute finding the chest. Cholelithiasis with findings highly suggestive of acute cholecystitis. HIDA scan is recommended to confirm. Electronically Signed: Yuan Ren MD at 3:49 EST Tel , Service support , ADDENDUM: 03/23/21 0359 IMPRESSION: No thoracoabdominal aortic aneurysm or dissection. No acute finding the chest. Cholelithiasis with findings highly suggestive of acute cholecystitis. HIDA scan is recommended to confirm. N.B. : Mikey Vaughn MD, confirmed on 03/23/2021 03:52:39 (ET) that the healthcare facility has received the radiology report. Electronically Signed: Yuan Ren MD at 3:49 EST Tel , Service support ,
--- NOTE | 2021-03-23 12:47 | PCS.PANDOC ---
PANDEMIC DOCUMENTATION INITIATED: Date: 12/09/2020 Time: 190
[2021-03-23] MEDS: 0.9% Normal Saline 1,000 ML 75 ML IV (12:57)
[2021-03-23] MEDS: 0.9% Saline Lock 10 ML Syringe IV (12:57)
[2021-03-23] MEDS: Ensure Clear 120 ML Liquid PO (13:13)
--- NOTE | 2021-03-23 13:37 | PCM.PN.HOSP ---
Documented by User: Vernon CASANOVA 03/23/21 13:46 Subjective Subjective Patient is a 70-year-old male lying in bed, alert and orient x3. Patient reports ongoing abdominal pain and constipation for the past week. Denies chest pain, shortness of breath, palpitations, hemoptysis, sputum production, fever, chills, N/V/D. Objective Data Objective Data Vital Signs: Vital Signs Temp Pulse Resp BP Pulse Ox 97.7 F L 70 18 153/84 H 98 03/23/21 12:40 03/23/21 12:40 03/23/21 12:40 03/23/21 12:40 03/23/21 12:40 Oxygen Delivery Method Room Air Weight: 212 lb 1.355 oz Body Mass Index (BMI) 30.4 Intake & Output: Intake and Output for Last 24 Hours 03/21/21 03/22/21 03/23/21 23:59 23:59 23:59 Intake Total 1050 / 1050 Balance 1050 / 1050 Lab / Micro Data Result Diagrams: 03/23/21 02:20 03/23/21 02:20 Labs: Laboratory Results - last 24 hr 03/23/21 02:20: WBC 12.2 H, RBC 5.08, Hgb 16.0, Hct 46.1, MCV 90.7, MCH 31.5, MCHC 34.7, RDW Std Deviation 39.8, RDW Coeff of Diallo 12.0, Plt Count 283, MPV 10.3, Immature Gran % (Auto) 0.400, Neut % (Auto) 84.6 H, Lymph % (Auto) 8.2 L, Brown % (Auto) 4.8, Eos % (Auto) 1.3, Baso % (Auto) 0.7, Absolute Neuts (auto) 10.3 H, Absolute Lymphs (auto) 1.00, Nucleated RBC % 0 03/23/21 02:20: PT 13.2, INR 1.1, APTT 31.2 03/23/21 02:20: Sodium 137, Potassium 4.5, Chloride 105, Carbon Dioxide 25.0, Anion Gap 7, BUN 18, Creatinine 0.93, Estim Creat Clear Calc 77.40, Est GFR (MDRD) Af Amer 103, Est GFR (MDRD) Non-Af 86, BUN/Creatinine Ratio 19.3, Glucose 182 H, Calcium 9.6, Total Bilirubin 0.80, Direct Bilirubin 0.14, AST 54 H, ALT 43, Alkaline Phosphatase 77, Total Protein 8.0, Albumin 3.8, Globulin 4.2, Lipase 109 03/23/21 02:20: Lactic Acid 1.1 03/23/21 02:20: Urine Color Yellow, Urine Clarity Clear, Urine pH 5.0, Ur Specific [place] 1.025, Urine Protein 30 H, Urine Glucose (UA) 50 H, Urine Ketones 5 H, Urine Occult Blood 10 H, Urine Nitrite Negative, Urine Bilirubin Negative, Urine Urobilinogen Normal, Ur Leukocyte Esterase Negative, Urine RBC 0 SEEN, Urine WBC 0 SEEN, Ur Squamous Epith Cells 0 SEEN, Urine Bacteria 0 SEEN, Urine Mucus 0 SEEN Micro: Microbiology 03/23/21 04:20 Nasal Secretion SARS-CoV-2 Antigen (Rapid) - Final Radiography Diagnostic Testing: Radiology Impression Chest/Abdomen/Pelvis CTA 03/23/21 02:08 IMPRESSION: No thoracoabdominal aortic aneurysm or dissection. No acute finding the chest. Cholelithiasis with findings highly suggestive of acute cholecystitis. HIDA scan is recommended to confirm. Electronically Signed: Yuan Ren MD at 3:49 EST Tel , Service support , ADDENDUM: 03/23/21 0359 IMPRESSION: No thoracoabdominal aortic aneurysm or dissection. No acute finding the chest. Cholelithiasis with findings highly suggestive of acute cholecystitis. HIDA scan is recommended to confirm. N.B. : Mikey Vaughn MD, confirmed on 03/23/2021 03:52:39 (ET) that the healthcare facility has received the radiology report. Electronically Signed: Yuan Ren MD at 3:49 EST Tel , Service support , Physical Exam Const alert, oriented x3 and no apparent distress HEENT head/scalp atraumatic and moist oral mucous membranes Head and Scalp: normocephalic Eyes PERRL, EOMs intact bilaterally and conjunctivae normal Neck no lymphadenopathy, supple and no JVD Resp no retractions and no use of accessory muscles Cardio regular rate, regular rhythm, no murmurs and no JVD GI normal to inspection, nondistended, normoactive bowel sounds, soft to palpation and non-tender Extremity normal to inspection, full ROM and no clubbing, cyanosis or edema Skin no rashes or lesions noted, no wounds, skin turgor normal and no jaundice Neuro CN's II-XII intact bilaterally Psych affect normal Assessment & Plan Assessment/Plan (1) Acute calculous cholecystitis: PLAN: Patient is a 70-year-old male who presents to the hospital medicine service on consult for medical management from general surgery before he undergoes a gallbladder removal tomorrow. 1) COPD Not in acute exacerbation, satting 98% on room air. Home COPD regimen held. Scheduled DuoNebs ordered, as needed albuterol ordered. 2) Hyperlipidemia Continue statin. 3) Acute calculus cholecystitis Management per general surgery, patient to undergo cholecystectomy from Dr. Ross on 03/24/2021. Patient seen by Vernon Doe PA-C, under the supervision of Dr. Ferrara. Documented by User: Dr. Bernardino Ferrara MD 03/23/21 16:03 Objective Data Lab / Micro Data Result Diagrams: 03/23/21 02:20 03/23/21 02:20 Charges/Coding Addendum Addendum: Dr. Ferrara: I personally reviewed the chart and examined the patient, and agree with the above findings. 70-year-old male presents to the hospital with abdominal pain. He initially noticed that he was having some constipation, and has had a having abdominal pain is upper mid abdomen. No fevers or chills. He does have some radiation of the pain to his back. Initially had a CT of the chest as well as his abdomen and pelvis, the CT demonstrated a mild case of cholecystitis. He has no significant medical conditions other than hyperlipidemia and COPD both of which are under control. He is not currently in a COPD exacerbation. Will recommend continuing his DuoNebs as well as his Crestor. Pain management and antibiotic stewardship by the primary service. Thank you for the consult will follow peripherally. Visit Charges OBSV E&M: 79597 Subsequent observation care L2
[2021-03-23] MEDS: Budesonide Respules 0.5 MG/2 ML AMPUL.NEB. INHALATION (17:52)
[2021-03-23] MEDS: Atorvastatin Calcium 10 MG Tablet PO (20:20)
[2021-03-24] VITALS (17 sets, daily range): BP systolic 126–172; BP diastolic 70–107; PULSE 60–99; RESP 16–20; TEMP 36.1–36.7; O2SAT 92–100
[2021-03-24] MEDS: 0.9% Normal Saline 1,000 ML 75 ML IV ×2 (00:26→14:58)
[2021-03-24] MEDS: Budesonide Respules 0.5 MG/2 ML AMPUL.NEB. INHALATION ×2 (06:50→20:00)
[2021-03-24 06:57] LABS: Absolute Lymphocyte Count 1.92 X10^3/uL (0.83-4.51); Absolute Neutrophil Count 6.6 X10^3/uL (2.0-7.7); Basophil# 0.06 X10^3/uL; Basophil% 0.6 % (0-1); Eosinophil# 0.42 X10^3/uL; Eosinophils% 4.2 % (0-5); Hematocrit 41.9 % (40-54); Hemoglobin 14.5 g/dL (13.0-16.5); Lymphocyte # 1.92 X10^3/ul (0.83-4.51); Lymphocyte % 19.4 % (19-41); Mean Corp Hgb Conc 34.6 g/dL (32-36); Mean Corpuscular Hgb 32.1 pg (27.0-32.0); Mean Corpuscular Volume 92.7 fL (80-94); Mean Platelet Vol. 10.7 fl (6.2-12.0); Monocyte% 9.1 % (0-10); NRBC Flagged by Analyzer 0 % (0-5); Neutrophil # 6.55 X10^3/uL (2.7-7.7); Neutrophil % 66.2 % (47-70); Platelet Count 241 K/mm3 (150-450); RBC Distribution Width CV 12.6 % (11.6-14.6); RBC Distribution Width SD 42.9 fl (35.1-43.9); Red Blood Count 4.52 M/mm3 (4.6-6.2); White Blood Count 9.9 K/mm3 (4.4-11.0)
[2021-03-24 07:10] LABS: AST(SGOT) 39 U/L (15-37); Alanine Aminotransfer ALT/SGPT 32 U/L (16-61); Alkaline Phosphatase 61 U/L (45-117); Amylase 36 U/L (25-115); Bilirubin, Direct 0.29 mg/dL (0.00-0.30); Globulin 3.5 g/dL (2.2-4.2); Lipase 105 U/L (73-393); Protein, Total 6.5 g/dL (6.4-8.2)
--- NOTE | 2021-03-24 10:41 | EKG12_ITS ---
Test Reason : PRE OP Blood Pressure : / mmHG Vent. Rate : 067 BPM Atrial Rate : 067 BPM P-R Int : 198 ms QRS Dur : 088 ms QT Int : 410 ms P-R-T Axes : 051 017 017 degrees QTc Int : 433 ms Sinus rhythm with Premature atrial complexes Otherwise normal ECG When compared with ECG of 04-OCT-2020 13:45, Premature atrial complexes are now Present Confirmed by BHAVYA SAENZ, FLOR ([id number]), index editor QUENTIN ROSE ([id number]) on 03/31/2021 10:00:32 A M Referred By: TEJA Confirmed By:KATH LATIF MD
[2021-03-24] MEDS: Bupivacaine Mpf 0.5% 30 ML VIAL (12:00)
--- NOTE | 2021-03-24 12:15 | GALL_PTH ---
PATIENT: LUZ MARINA DENNIS LOC: [facility] U#:[id number] AGE/SX: 70/M ROOM: [facility] RE03/23/[address]: Dr. Linden Iniguez DO : 1950 BED: 1 DIS: 03/25/2021 SPEC #: [id number] RECD: 03/24/21 14:18 STATUS: RAJENDRA REKathy #: [id number] ANTONIO: 03/24/21 12:[address]: Wagner Blood DEPT: SURGICAL PATHOLOGY RECD BY: Zenaida Corral ENTERED: 03/25/21 09:34 SP TYPE: GALLBLADDE OTHR DR: MD Dr. Linden Sullvian DO Dr. Nicholas F Kotsonis, MD Holly Lewis, KRUPA-C Tissues: Gallbladder, NOS Procedures: Surgery Specimen Level III Comments: @ Ordering doctor for SUIII edited from to DR.DPEABO Maverick PEÑALOZA at 03/25/21 1358 @ Submitting doctor edited from to DR.DPEABO Maverick PEÑALOZA at 03/25/21 1358 HEADER OPERATION: Laparoscopic cholecystectomy PRE-OP DIAGNOSIS: Acute calculous cholecystitis TISSUE SUBMITTED: Gallbladder MICROSCOPIC DIAGNOSIS Gallbladder, cholecystectomy: Acute and chronic ulcerated cholecystitis and cholelithiasis. TANIA:jennie 03/26/2021 MICROSCOPIC DESCRIPTION Slides are reviewed. GROSS DESCRIPTION Received is one container labeled with the patient's name and designated gallbladder. The specimen consists of a gallbladder measuring 8.5 cm in length and up to 4 cm in diameter. The external surface is pink-lomeli, smooth and glistening for the most part. Focally it is granular, hemorrhagic and contains cautery artifact. The gallbladder does not show any bile. A greenish-yellow mulberry stone is present close to the cystic duct measuring 1.5 cm in greatest dimension. The gallbladder wall measures up to 1.5 cm in thickness. Increased amount of subserosal fat is noted. Wad Lubricator sections from the gallbladder and the cystic duct are submitted in two cassettes. / TANIA:jennie 03/25/21 TC:2 CPT: 13422
[2021-03-24] MEDS: Lactated Ringers 1,000 ML 100 ML IV (12:45)
--- NOTE | 2021-03-24 13:07 | OP.PCM_ITS ---
Problems Associated Problem List Diagnoses (1) Acute calculous cholecystitis: Report of Operation Date of Procedure: 03/24/21 Pre-Operative Diagnosis: Acute cholecystitis with cholelithiasis Post-Operative Diagnosis: Same Surgery/Procedure Performed:: Laparoscopic cholecystectomy Surgeon: Wagner Blood set up mechanic coating machines: Anastasia Tolbert Type of Anesthesia: General Anesthesiologist: Bassem Vences Specimen's removed: Gallbladder Estimated Blood Loss (mL): < 25 cc Description of Procedure: Patient was brought into the operating room. Placed in the supine position. Under excellent general anesthetic the abdomen was sterilely prepped and draped in the usual fashion. Visiport was used in the right upper quadrant to gain access to the intra-abdominal cavity without injury to underlying structures. The abdomen was insufflated to 15 torr. A subxiphoid #5 trocar was placed inferior to this another #5 trocar was placed inferior to this a 10/12 trocar was placed. All these under direct visualization without injury to underlying structures. Patient was placed in the head up and rotated to the left position. I aspirated out the gallbladder. I took down adhesions with electrocautery. Grabbed the fundus of the gallbladder and retracted in the cephalad direction. Dense adhesions were identified down where the cystic duct cystic artery were. It took quite a bit of time to dissect all of these 3 but I was able to identify cystic duct cystic artery and then posterior to this the liver. I placed hemoclips proximally and distally on the duct and ligated the duct placing blocks proximally distally and the artery and ligated the artery deliver the gallbladder from the gallbladder bed placed clip on the posterior branch of the cystic artery. Placed the specimen specimen bag and delivered it through the 10/12 port without difficulty. Reinflated the abdomen I used electrocautery on the liver bed for good in the stasis. There was no spillage of stones. All bile that leaked out was aspirated without difficulty. I did not feel a drain was necessary. I removed the trochars under direct visualization. Umbilical port was closed with 2 sutures of 0 Vicryl in [id number] fashion. Skin incisions were closed with subcuticular stitches of 4-0 Monocryl. Steri-Strips were applied sterile dressings were applied and the patient tolerated the procedure well. Admit VTE Documentation VTE Present on Admission: No VTE Mechan Device Prophylaxis: SCD's VTE Pharm Prophylaxis ordered?: No Reason prophylaxis not ordered:: Treatment Not Indicated
--- NOTE | 2021-03-24 14:19 | SUR.PHASEI ---
co2 monitored per etCO2 nasal cannula; 41 at this time. will cont to monitor. VSS.
--- NOTE | 2021-03-24 14:31 | NURSING ---
THIS RN CALLED AND SPOKE TO PAMELA BALBUENA. WILL ASSESS ANTECUBITALS FOR ANY POST-EXTRAVASATION S/SX. EXTRAVASATION IN CT WHILE IN ED, PRIOR TO ADMISSION TO FLOOR.
--- NOTE | 2021-03-24 16:00 | CASEMGMT ---
This RN CM to room with SINGH form, explanation done-pt voices understanding, and signs SINGH at this time. Original to chart and copy to pt. Pt is A/Ox4 at this time. Pt voices no further questions/concerns/needs. SStaten PAMELA FERRER
[2021-03-24] MEDS: Ensure Clear 120 ML Liquid PO (18:58)
--- NOTE | 2021-03-24 20:31 | PCM.PN.HOSP ---
Subjective Subjective Patient was seen and examined today, he underwent a laparoscopic cholecystectomy today, he has no complaints of any chest pain or shortness of breath postop, he appears to be resting comfortably. Objective Data Objective Data Vital Signs: Vital Signs Temp Pulse Resp BP Pulse Ox 98.0 F 77 16 146/80 H 94 03/24/21 18:49 03/24/21 18:49 03/24/21 18:49 03/24/21 18:49 03/24/21 18:49 Oxygen Flow Rate (L/min) 6 Oxygen Delivery Method Room Air Weight: 96.2 kg Body Mass Index (BMI) 30.4 Intake & Output: Intake and Output for Last 24 Hours 03/22/21 03/23/21 03/24/21 23:59 23:59 23:59 Intake Total 1500 / 1500 2229.79 / 2229.79 Balance 1500 / 1500 2229.79 / 2229.79 Lab / Micro Data Result Diagrams: 03/24/21 05:20 03/23/21 02:20 Labs: Laboratory Results - last 24 hr 03/24/21 05:20: WBC 9.9, RBC 4.52 L, Hgb 14.5, Hct 41.9, MCV 92.7, MCH 32.1 H, MCHC 34.6, RDW Std Deviation 42.9, RDW Coeff of [place] 12.6, Plt Count 241, MPV 10.7, Immature Gran % (Auto) 0.500, Neut % (Auto) 66.2, Lymph % (Auto) 19.4, [place] % (Auto) 9.1, Eos % (Auto) 4.2, Baso % (Auto) 0.6, Absolute Neuts (auto) 6.6, Absolute Lymphs (auto) 1.92, Nucleated RBC % 0 03/24/21 05:20: Total Bilirubin 1.00, Direct Bilirubin 0.29, AST 39 H, ALT 32, Alkaline Phosphatase 61, Total Protein 6.5, Albumin 3.0 L, Globulin 3.5, Amylase 36, Lipase 105 Micro: Microbiology 03/23/21 04:20 Nasal Secretion SARS-CoV-2 Antigen (Rapid) - Final Physical Exam Const alert, oriented x3, no apparent distress and healthy appearing General Appearance: cooperative, well kempt and well developed Orientation / Consciousness: awake, oriented to person, oriented to place and oriented to time Nutritional Appearance: obese HEENT normocephalic and moist oral mucous membranes Eyes PERRL, EOMs intact bilaterally and conjunctivae normal Neck nuchal rigidity, supple, no JVD, thyroid normal and no carotid bruits General: trachea midline Resp normal respiratory effort and clear to auscultation bilaterally Auscultation: Negative for rales, rhonchi or wheezes Cardio regular rate, regular rhythm, no murmurs, no rub and no gallops GI Auscultation: hypoactive bowel sounds Extremity no clubbing, cyanosis or edema Skin no rashes or lesions noted General Skin Exam: no breakdown Neuro oriented x3, CN's II-XII intact bilaterally, no focal motor deficits and no sensory deficits noted Sensorium / Orientation: awake and alert Speech: speech normal Psych thought process normal and affect normal Assessment & Plan Assessment/Plan (1) Acute calculous cholecystitis: PLAN: 1. COPD-patient appears stable at this time #2 hyperlipidemia #3 acute calculus cholecystitis-postop day 0 laparoscopic cholecystectomy Charges/Coding Visit Charges OBSV E&M: 50798 Subsequent observation care L3
[2021-03-24] MEDS: Atorvastatin Calcium 10 MG Tablet PO (21:09)
[2021-03-25 02:00] VITALS: BP 145/84; PULSE 65; RESP 16; TEMP 37; O2SAT 94
[2021-03-25] MEDS: 0.9% Normal Saline 1,000 ML 75 ML IV (05:32)
[2021-03-25 06:00] VITALS: BP 149/74; PULSE 72; RESP 16; TEMP 36.8; O2SAT 93
[2021-03-25 06:50] VITALS: PULSE 85; RESP 20
[2021-03-25] MEDS: Budesonide Respules 0.5 MG/2 ML AMPUL.NEB. INHALATION (06:50)
[2021-03-25] MEDS: Ensure Clear 120 ML Liquid PO (08:48)
--- NOTE | 2021-03-25 09:12 | PN.HOSP_ITS ---
Subjective Subjective The date of this entry should be 03/25/2021: Patient was seen and examined today, he is being discharged home by general surgery. Patient requested pain medications and I ordered some [place] for him as an outpatient. I also confirmed the patient's home-going medications for general surgery. Objective Data Objective Data Vital Signs: Vital Signs Temp Pulse Resp BP Pulse Ox 98.3 F 85 20 H 149/74 H 93 03/25/21 06:00 03/25/21 06:50 03/25/21 06:50 03/25/21 06:00 03/25/21 06:00 Oxygen Flow Rate (L/min) 6 Oxygen Delivery Method Room Air Weight: 96.2 kg Body Mass Index (BMI) 30.4 Intake & Output: Intake and Output for Last 24 Hours 03/25/21 03/26/21 03/27/21 23:59 23:59 23:59 Intake Total 1506.25 / 1506.25 Balance 1506.25 / 1506.25 Lab / Micro Data Result Diagrams: 03/24/21 05:20 03/23/21 02:20 Micro: Microbiology 03/23/21 04:20 Nasal Secretion SARS-CoV-2 Antigen (Rapid) - Final Physical Exam Const alert, oriented x3, no apparent distress and healthy appearing General Appearance: cooperative, well kempt and well developed Orientation / Consciousness: awake, oriented to person, oriented to place and oriented to time HEENT normocephalic and moist oral mucous membranes Eyes PERRL, EOMs intact bilaterally and conjunctivae normal Neck nuchal rigidity, supple, no JVD and thyroid normal General: trachea midline Resp normal respiratory effort and clear to auscultation bilaterally Auscultation: Negative for rales, rhonchi or wheezes Cardio regular rate, regular rhythm, no murmurs, no rub and no gallops GI soft to palpation, non-tender and non-distended Extremity no clubbing, cyanosis or edema Skin no rashes or lesions noted General Skin Exam: no breakdown Neuro oriented x3, CN's II-XII intact bilaterally, no focal motor deficits and no sensory deficits noted Sensorium / Orientation: awake and alert Speech: speech normal Psych thought process normal and affect normal Assessment & Plan Assessment/Plan (1) Acute calculous cholecystitis: PLAN: 1. COPD-patient appears stable at this time #2 hyperlipidemia #3 acute calculous cholecystitis-postop day 1 laparoscopic cholecystectomy Patient appears medically stable for discharge today Charges/Coding Visit Charges OBSV E&M: 04579 Subsequent observation care L3
--- NOTE | 2021-03-25 09:40 | DCINST_ITS ---
Discharge Instructions Procedure Gallbladder Diet Discharge Diet: Light diet - advance as tolerated Activity Discharge Activity: May Not Drive (for 2-3 days or while taking narcotic pain medications.) and - (Do not drive, work heavy equipment or sign legal documents for 24 hours.) May shower in (days): 1 (with the bandage in place.) Additional Activity Instructions:: Pain medication may cause nausea. You should typically eat light foods as you take your pain medications. Pain medication may also cause constipation. If this is a problem for you, please discuss with your doctor. Dressing / Incision Call your doctor if your incision/area has: Continuous Slow Oozing, Sudden Increased Bleeding, Increased Pain/ Swelling, Increased Redness and Foul Smelling Discharge Call your doctor if you observe: Fever of 101 or Higher Suture Line Care: Avoid Pulling/Pushing and Avoid Pinching/Bending Additional Dressing/Incision Instructions:: Leave operative bandaids on for 2 days. When you remove dressing, leave Steri-Strips on until your follow-up appointment, or until the Steri-Strips fall off on their own. Follow Up Care Please Follow Up With: Gwendolyn Ochoa PA-C When: Call office to schedule an appointment to be seen in 7 days after surgery. Test Results: Test results from this visit will be discussed in further detail at your follow-up appointment, if applicable. Discharge Plan Admission Admit Date/Time: 03/23/21 13:37 Attending Provider: Linden Iniguez Primary Care Provider: Elba Leigh NP Consulting Providers: Bernardino Ferrara Discharge Orders/Prescriptions Prescriptions: No Action rosuvastatin 5 mg tablet 5 mg PO DAILY RF: 0 fluticasone propion-salmeterol 250-50 mcg/dose blister with device 1 inh inhalation DAILY RF: 0 albuterol sulfate 1 INHALER inhaler 1 - 2 puff INHALATION Q4H PRN PRN (Reason: Wheezing) Qty: 1 RF: 0 fexofenadine [Katie Allergy] 180 mg Tablet 180 mg PO DAILY RF: 0 bismuth subsalicylate [Pepto-Bismol] 262 mg Tablet,Chewable 1 tab PO DAILY RF: 0 Referrals / Follow Up: Elba Leigh NP, OPERATIONS AND MAINTENANCE SPECIALIST-C [Primary Care Provider] - Gwendolyn Ochoa PA-C [PHYSICIAN MINISTER ASSISTANT] -
--- NOTE | 2021-03-25 09:42 | DS.PCM_ITS ---
Providers Date of Admission: 03/23/21 Primary Care Physician: KISHORE Gallardo Consultations 03/23/21 14:32 Consult: Hospitalist Routine Consulting Provider: Bernardino Ferrara Reason for Consult: medical management EMERGENT Consult: No MD Notified: Yes Date Notified: 03/23/21 Time Notified: 14:33 Method of Notification: Verbal Reason For Visit: GALLBLADDER Diagnosis Discharge Diagnosis (1) Acute calculous cholecystitis: Status: Acute Code(s): K80.00 - Calculus of gallbladder with acute cholecystitis without obstruction Medications at Discharge Home Medications albuterol sulfate 1 - 2 puff INHALATION Q4H PRN PRN #1 inhaler 02/12/20 fluticasone 250 mcg-salmeterol 50 mcg/dose blistr powdr for inhalation 1 inh INHALATION DAILY 09/17/20 rosuvastatin 5 mg tablet 5 mg PO DAILY tab 09/17/20 bismuth subsalicylate [Pepto-Bismol] 1 tab PO DAILY 10/04/20 fexofenadine [Katie Allergy] 180 mg PO DAILY 10/04/20 Hospital Course Operations cholecystecomy Summary of Care Provided Hospital Course: LUZ MARINA DENNIS, is a 70/ M who presents with complaint of abdominal pain. He states that he has had difficulty with bowel movements for the past 5 to 7 days and only been passing small stools. He states he has noticed some increasing pain to his upper mid abdomen without any injury. He denies any chest pain fevers chills nausea or vomiting. He states he has been trying his home medications as well as [id number]-[id number] medications without any symptom improvement and secondary to this comes in for evaluation. Patient does state that he feels like the upper abdominal pain does shoot into his back. Underwent a lap [place] on 03/24/21. Was d/c on 03/25/21 Physical Exam Const alert, oriented x3 and no apparent distress General Appearance: cooperative, comfortable and well kempt GI GI Narrative: dressings dry appropiate surgical pain Weight / BMI Weight Weight: 212 lb 1.355 oz Body Mass Index (BMI) 30.4 ABG / Lab / Microbiology Data Result Diagrams: 03/24/21 05:20 03/23/21 02:20 Microbiology: Microbiology 03/23/21 04:20 Nasal Secretion SARS-CoV-2 Antigen (Rapid) - Final D/C Instructions Discharge Diet: Light diet - advance as tolerated May shower in (days): 1 (with the bandage in place.) Additional Activity Instructions: Pain medication may cause nausea. You should typically eat light foods as you take your pain medications. Pain medication may also cause constipation. If this is a problem for you, please discuss with your doctor. Call your doctor if your incision/area has: Continuous Slow Oozing, Sudden Increased Bleeding, Increased Pain/ Swelling, Increased Redness and Foul Smelling Discharge Call your doctor if you observe: Fever of 101 or Higher Suture Line Care: Avoid Pulling/Pushing and Avoid Pinching/Bending Additional Dressing/Incision Instructions: Leave operative bandaids on for 2 days. When you remove dressing, leave Steri-Strips on until your follow-up eriberto ointment, or until the Steri-Strips fall off on their own. Please Follow Up With: Gwendolyn Ochoa PA-C When: Call office to schedule an appointment to be seen in 7 days after surgery. Meaningful Use Info Meaningful Use Diagnoses (Choose all that apply): None applicable Discharge Plan Admission Admit Date/Time: 03/23/21 13:37 Attending Provider: Linden Iniguez Primary Care Provider: Elba Leigh NP Consulting Providers: Bernardino Ferrara Discharge Orders/Prescriptions Prescriptions: No Action rosuvastatin 5 mg tablet 5 mg PO DAILY RF: 0 fluticasone propion-salmeterol 250-50 mcg/dose blister with device 1 inh inhalation DAILY RF: 0 albuterol sulfate 1 INHALER inhaler 1 - 2 puff INHALATION Q4H PRN PRN (Reason: Wheezing) Qty: 1 RF: 0 fexofenadine [Katie Allergy] 180 mg Tablet 180 mg PO DAILY RF: 0 bismuth subsalicylate [Pepto-Bismol] 262 mg Tablet,Chewable 1 tab PO DAILY RF: 0 Referrals / Follow Up: Elba Leigh NP, CLINICAL DATA RESEARCH-C [Primary Care Provider] - Gwendolyn Ochoa PA-C [PHYSICIAN PROGRAM RESEARCH SPECIALIST] -
--- NOTE | 2021-03-25 12:18 | PHA.DC.MR ---
Pharmacy Service has performed discharge medication reconciliation for this patient. The patient's discharge medication list was reviewed for discrepancies and discrepancies were resolved. Medication education papers prepared, patient discharged before I could associate counsel. Home Medications albuterol sulfate 1 - 2 puff INHALATION Q4H PRN PRN #1 inhaler 02/12/20 fluticasone 250 mcg-salmeterol 50 mcg/dose blistr powdr for inhalation 1 inh INHALATION DAILY 09/17/20 rosuvastatin 5 mg tablet 5 mg PO DAILY tab 09/17/20 bismuth subsalicylate [Pepto-Bismol] 1 tab PO DAILY 10/04/20 fexofenadine [Katie Allergy] 180 mg PO DAILY 10/04/20 hydrocodone-acetaminophen 1 tab PO Q6H PRN 7 Days #14 tab 03/25/21
== END 2021-03-25 09:45 | disposition home or self-care (01) ==
LOC: ED 04:32 → PCU 03-24 06:39
PROVIDERS: Admitting Provider Surgery; Emergency Provider Emergency Medicine; PCP Registered Nurse; Visit Provider Internal Medicine
PROC: (CPT 47562; principal; 2021-03-24 11:55)
DX: K80.12 Calculus of gallbladder with acute and chronic cholecystitis without obstruction (principal); J44.9 Chronic obstructive pulmonary disease, unspecified; F32.A Depression, unspecified; Z79.899 Other long term (current) drug therapy; Z87.891 Personal history of nicotine dependence; Z79.51 Long term (current) use of inhaled steroids; E78.5 Hyperlipidemia, unspecified
CPT/HCPCS: 00790; 47562; 36415; 71275; 74174; 80048; 80076; 81001; 82150; 83605; 83690; 85025; 85610; 85730; 87426; 88304; 93005; 94640; 96361; 96365; 96366; 96375; 96376; 97162; 97166; 97802; 99218; 99251; 99285; J7030; J7040; J7120; Q9967; A4216; G0378; G0463; J2405

== ENCOUNTER 2021-05-07 14:06 | Outpatient (CLI) | payer BC, MEDICARE, SELFPAY | END 2021-05-07 23:59 | disposition short-term general hospital (02) | LOC: LABSPEC 14:12 | PROVIDERS: PCP Registered Nurse; Referring Provider Physician Assistant; Visit Provider Physician Assistant | DX: U07.1 COVID-19 (principal) | CPT/HCPCS: 87635; U0003; U0005 ==

== ENCOUNTER → 2022-09-10 | Outpatient (CLI) | payer MEDICARE, SELFPAY ==
--- NOTE | 2022-09-10 12:00 | RAD_ITS ---
INDICATION: COPD EXAMINATION/TECHNIQUE: X-RAY - XR Chest 2 Views COMPARISON: February 12, 2020 FINDINGS: LINES/DEVICES: None. LUNGS: No consolidation, edema or effusion. No pneumothorax. MEDIASTINUM AND CARDIOVASCULAR STRUCTURES: Cardiac silhouette not enlarged. Central airways and mediastinal contour are unremarkable. BONES AND SOFT TISSUES: Moderate degenerative disc disease mid thoracic spine, mild degenerative disc disease upper and lower thoracic spine. Stable exam. RAD/Chest PA and Lateral IMPRESSION: No radiographic evidence of acute cardiopulmonary disease. Electronically Signed: Linden Magdaleno MD, MIRZA at 18:45 EDT ,
== END | disposition home or self-care (01) ==
LOC: RAD 11:56
PROVIDERS: PCP Registered Nurse; Referring Provider Registered Nurse; Visit Provider Registered Nurse
DX: J44.9 Chronic obstructive pulmonary disease, unspecified (principal); R06.02 Shortness of breath
CPT/HCPCS: 71046